=== PATIENT | female | born 1980 | race Two or more races ===

== ENCOUNTER 2024-09-09 10:40 | Inpatient (IN) | payer OTHER ==
[~2024-09-09] VITALS: Ht 154.9 cm; Wt 97.1 kg
[2024-09-09] MEDS ORDERED: ZESTRIL5 MG (11:16)
[2024-09-09] MEDS ORDERED: SYNTHROID175 MCG PO (11:16)
[2024-09-09] MEDS ORDERED: RINGERS SOLUTION,LACTATED 1,000 ML IV STA (11:40)
[2024-09-09] MEDS ORDERED: KETOROLAC TROMETHAMINE 60 MG VIAL IM STA (12:43)
[2024-09-09 12:49] LABS: MEAN CORPUSCULAR HGB CONC 31.5 g/dl (32.0-36.0); PLATELET COUNT 293 K/uL (150-450); RED BLOOD COUNT 2.98 M/uL (4.00-6.00); RED CELL DISTRIBUTION WIDTH 20.3 % (11.5-14.5)
[2024-09-09 12:50] LABS: CALCIUM 8.5 mg/dL (8.5-10.1); CREATININE SERUM 0.93 mg/dL (0.55-1.02); GFR 66.11; POTASSIUM 3.85 mEq/L (3.5-5.1)
[2024-09-09 13:01] LABS: HEMATOCRIT 19.5 % (36.0-45.00); HEMOGLOBIN 6.2 g/dL (12.0-15.00); INR 1.09; MEAN CELL VOLUME 65.6 fL (80.00-100.00); MEAN CORPUSCULAR HEMOGLOBIN 20.8 pg (27.00-32.0); PARTIAL THROMBOPLASTIN TIME 26.3 SECONDS (22.0-34.0); PROTHROMBIN TIME 11.8 SECONDS (9.0-11.5)
[2024-09-09 15:56] VITALS: BP 118/60; O2SAT 99
[2024-09-09 19:51] VITALS: BP 131/70
[2024-09-10] VITALS: BP 108/70
[2024-09-10 10:24] VITALS: BP 151/77
[2024-09-10] MEDS ORDERED: ESTROGENS, CONJUGATED 25 MG VIAL IV STA (11:29)
[2024-09-10 16:07] LABS: HEMATOCRIT 29.4 % (36.0-45.00); MEAN CELL VOLUME 73.7 fL (80.00-100.00); MEAN CORPUSCULAR HEMOGLOBIN 23.8 pg (27.00-32.0); MEAN CORPUSCULAR HGB CONC 32.3 g/dl (32.0-36.0); PLATELET COUNT 266 K/uL (150-450); RED BLOOD COUNT 3.99 M/uL (4.00-6.00); RED CELL DISTRIBUTION WIDTH 23.7 % (11.5-14.5)
[2024-09-10 16:08] LABS: HEMOGLOBIN 9.5 g/dL (12.0-15.00)
[2024-09-10 16:54] VITALS: BP 131/63
[2024-09-10 20:16] VITALS: BP 138/66
[2024-09-10] MEDS ORDERED: ACETAMINOPHEN 500 MG GEL..CAP PO PRN (20:30)
[2024-09-11 01:00] VITALS: BP 117/74
[2024-09-11] MEDS ORDERED: LEVOTHYROXINE SODIUM 175 MCG TABLET PO SCH (06:00)
[2024-09-11 08:00] VITALS: BP 138/85
[2024-09-11] MEDS ORDERED: CLONAZEPAM 0.5 MG TABLET PO ONE (08:30)
[2024-09-11] MEDS ORDERED: ESTROGENS, CONJUGATED 25 MG VIAL IV SCH ×2 (09:00→21:00)
[2024-09-11] MEDS ORDERED: SOD FERRIC GLUC COMPLX/SUCROSE 62.5 MG/5 ML AMPUL IV NR (14:00)
[2024-09-11 16:32] VITALS: BP 126/83
[2024-09-12] VITALS: BP 135/80
[2024-09-12 07:17] LABS: HEMATOCRIT 25.2 % (36.0-45.00); MEAN CELL VOLUME 72.3 fL (80.00-100.00); MEAN CORPUSCULAR HGB CONC 33.3 g/dl (32.0-36.0); PLATELET COUNT 253 K/uL (150-450); RED BLOOD COUNT 3.49 M/uL (4.00-6.00); RED CELL DISTRIBUTION WIDTH 24.3 % (11.5-14.5)
[2024-09-12 07:19] LABS: HEMOGLOBIN 8.4 g/dL (12.0-15.00)
[2024-09-12 08:29] VITALS: BP 137/83
[2024-09-12] MEDS ORDERED: SOD FERRIC GLUC COMPLX/SUCROSE 62.5 MG in 0.9 % SODIUM CHLORIDE 50 ML IV SCH (09:00)
[2024-09-12 16:35] VITALS: BP 134/83
[2024-09-13 01:05] VITALS: BP 130/69
[2024-09-13 08:00] VITALS: BP 116/61
[2024-09-13 11:35] LABS: HEMATOCRIT 26.4 % (36.0-45.00); HEMOGLOBIN 8.7 g/dL (12.0-15.00); MEAN CELL VOLUME 73.2 fL (80.00-100.00); MEAN CORPUSCULAR HGB CONC 33.1 g/dl (32.0-36.0); PLATELET COUNT 268 K/uL (150-450); RED BLOOD COUNT 3.61 M/uL (4.00-6.00); RED CELL DISTRIBUTION WIDTH 25.4 % (11.5-14.5)
[2024-09-13 17:34] VITALS: BP 137/71
[2024-09-14 00:52] VITALS: BP 133/81
[2024-09-14 08:42] VITALS: BP 122/80
[2024-09-14 16:18] VITALS: BP 138/69
[2024-09-14] MEDS ORDERED: FF) NORGESTREL-ETHINYL ESTRADIOL TAB PO SCH (21:00)
[2024-09-15 02:33] VITALS: BP 136/78
[2024-09-15 08:34] VITALS: BP 120/55
[2024-09-15] MEDS ORDERED: ESTROGENS, CONJUGATED 25 MG VIAL IV SCH (09:00)
[2024-09-15] MEDS ORDERED: MAXFE CAPLET1 EAC1 PO (10:32)
[2024-09-15] MEDS ORDERED: SPRINTEC 28 DA1 EACH PO (10:32)
== END 2024-09-15 10:55 | disposition home or self-care (01) | DRG 812 ==
LOC: ER 10:42 → OB/GYN 16:38
PROVIDERS: General Practice; Obstetrics & Gynecology; ADMIT Obstetrics & Gynecology; ATTEND Obstetrics & Gynecology
PROC: 30233N1 Transfusion of Nonautologous Red Blood Cells into Peripheral Vein, Percutaneous Approach (ICD-10-PCS; principal; 2024-09-09)
PROC: BU4CZZZ Ultrasonography of Uterus and Ovaries (ICD-10-PCS; 2024-09-09)
DX: D64.9 Anemia, unspecified (principal); N92.1 Excessive and frequent menstruation with irregular cycle; N93.9 Abnormal uterine and vaginal bleeding, unspecified; D25.9 Leiomyoma of uterus, unspecified